=== PATIENT | female | born 1990 | race American Indian/Alaskan Native ===

== ENCOUNTER 2017-04-28 17:00 | Emergency (ER) | payer OTHER ==
[~2017-04-28] VITALS: Ht 177.8 cm; Wt 93.6 kg
[2017-04-28] MEDS ORDERED: ACETAMINOPHEN 325 MG TAB PO ONE (17:45)
[2017-04-28] MEDS ORDERED: IBUPROFEN 800 MG TAB PO ONE (17:45)
[2017-04-28] MEDS ORDERED: NS 1,000 ML IV ONE (17:45)
[2017-04-28 18:03] LABS: BASO # 0.1 10^3/uL (0.0-0.2); BASO % 0.9 % (0.0-1.0); EOS # 0.1 10^3/uL (0.0-0.50); EOS % 1.7 % (0.0-3.0); IMMATURE GRANULOCYTE % 0.3 % (0-0); LYMPH # 3.5 10^3/uL (1.5-6.5); LYMPH % 45.9 % (24.0-44.0); MEAN CORPUSCULAR HGB CONC 34.2 g/dl (32.0-36.5); MEAN CORPUSCULAR VOLUME 79.1 fl (80.0-96.0); MONO # 0.6 10^3/uL (0.0-0.8); MONO % 7.9 % (0.0-5.0); NEUTROPHILS # 3.3 10^3/uL (1.8-7.7); NEUTROPHILS % 43.3 % (36.0-66.0); PLATELET COUNT, AUTOMATED 257 10^3/uL (150-450); RED CELL DISTRIBUTION WIDTH 12.6 % (11.5-14.5); WHITE BLOOD COUNT 7.6 10^3/uL (4.0-10.0)
[2017-04-28 18:28] LABS: ANION GAP 4 MEQ/L (8-16); BLOOD UREA NITROGEN 12 MG/DL (7-18); CALCIUM LEVEL 9.1 MG/DL (8.5-10.1); CARBON DIOXIDE LEVEL 31 MEQ/L (21-32); CHLORIDE LEVEL 107 MEQ/L (98-107); CREATININE FOR GFR 0.68 MG/DL (0.55-1.02); GLOMERULAR FILTRATION RATE > 60.0 (>60); GLUCOSE, FASTING 84 MG/DL (70-105); POTASSIUM SERUM 3.8 MEQ/L (3.5-5.1); SODIUM LEVEL 142 MEQ/L (136-145)
[2017-04-28 18:59] LABS: ERYTHROCYTE SEDIMENTATION RATE 10 mm/hr (0-20)
--- NOTE | 2017-04-28 19:09 | REP ---
HISTORY: Temporal headache times three months. No priors. TECHNIQUE: 4.5 mm contiguous transaxial sections were obtained from the skull base to the cerebral convexities with thin cuts through the posterior fossa without the administration of intravenous contrast. FINDINGS: The ventricles and sulci are consistent with the patient's age. There are no extra-axial fluid collections. There is no mass effect. The deep cerebral white matter is consistent with the patient's age. The orbital and petrous structures , cerebellopontine angles, and posterior fossa are unremarkable. The sella turcica, cavernous, and paracavernous structures are essentially unremarkable. The visualized portions of the paranasal sinuses and mastoid air cells are clear. Images of the skull base show no gross abnormality. IMPRESSION: Essentially unremarkable CT examination of the brain. Signed by Sameer Salmeron DO 04/28/2017 07:30 P
--- NOTE | 2017-04-28 21:00 | REPUSA ---
MR Venogram of the brain. Clinical history: headache, dizziness. Technique: [id number] MRV images of the brain were obtained without administration of contrast. 3 -D MIP images were also obtained. Findings: The intracranial venous structures demonstrate normal caliber and contour. No intraluminal filling defect is identified. There is no evidence of aneurysm, stenosis, or thrombosis. Impression: Unremarkable MRV examination of the brain.
--- NOTE | 2017-04-28 21:10 | REPUSA ---
MRI of the brain. Clinical history: headache, dizziness. Technique: Multiecho multiplanar MRI images of the brain were obtained without administration of cont rast. Diffusion weighted images with ADC mapping was also obtained. Findings: The ventricles and sulci are symmetric bilaterally. The brain parenchyma demonstrates uniform and nor mal signal on all sequences. There is no midline shift, mass effect, or extra-axial fluid collection. The midline intracranial structures do not demonstrate any gross abnormalities. The cervical cranial junction is intact. The orbits are unremarkable. The visualized paranasal sinuses and mastoid air ce lls are clear. The osseous structures and superficial soft tissues are unremarkable. The vascular str uctures demonstrate appropriate flow voids. Impression: Normal MRI of the Brain.
[2017-04-28] MEDS ORDERED: IBUP80TA PO (21:34)
[2017-04-28 21:40] VITALS: BP 133/77
== END 2017-04-28 21:44 | disposition home or self-care (01) ==
LOC: M ED 17:00
DX: G43.909 Migraine, unspecified, not intractable, without status migrainosus (principal); Z87.891 Personal history of nicotine dependence

== ENCOUNTER 2018-01-12 19:25 | Emergency (ER) | payer SELFPAY, OTHER | END 2018-01-12 23:46 | disposition home or self-care (01) | LOC: M ED 19:25 | DX: N64.4 Mastodynia (principal) | CPT/HCPCS: 76604 ==

== ENCOUNTER 2019-07-23 21:26 | Emergency (ER) | payer OTHER, SELFPAY ==
[~2019-07-23] VITALS: Ht 177.8 cm; Wt 110.0 kg
[~2019-07-23 21:26] MED LIST: ACET-716 PO; APAP500T10 PO; IBUP80TA PO
[2019-07-23 22:22] LABS: BASO # 0.1 10^3/uL (0.0-0.2); BASO % 1.1 % (0.0-1.0); EOS # 0.1 10^3/uL (0.0-0.5); HEMATOCRIT 40.6 % (36.0-47.0); HEMOGLOBIN 13.3 g/dl (12.0-15.5); MEAN CORPUSCULAR HEMOGLOBIN 27.3 pg (27.0-33.0); MEAN CORPUSCULAR HGB CONC 32.8 g/dl (32.0-36.5); MEAN CORPUSCULAR VOLUME 83.2 fl (80.0-96.0); MONO # 0.6 10^3/uL (0.0-0.8); MONO % 7.5 % (0.0-5.0); NEUTROPHILS # 3.6 10^3/uL (1.5-8.5); NEUTROPHILS % 43.2 % (36.0-66.0); PLATELET COUNT, AUTOMATED 299 10^3/uL (150-450); RED BLOOD COUNT 4.88 10^6/uL (4.00-5.40); WHITE BLOOD COUNT 8.4 10^3/uL (4.0-10.0)
[2019-07-23 22:50] LABS: HEMOGLOBIN A1c 5.5 %
[2019-07-23 23:01] LABS: FREE T4 1.15 NG/DL (0.76-1.46); MAGNESIUM LEVEL 1.9 MG/DL (1.8-2.4); THYROID STIMULATING HORMONE 2.78 uIU/ML (0.358-3.740)
[2019-07-23 23:13] VITALS: BP 123/78
== END 2019-07-23 23:20 | disposition home or self-care (01) ==
LOC: M ED 21:26
DX: R53.83 Other fatigue (principal); R20.2 Paresthesia of skin; R63.1 Polydipsia; R35.8 Other polyuria; Z87.891 Personal history of nicotine dependence

== ENCOUNTER 2019-09-24 21:36 | Emergency (ER) | payer OTHER ==
[~2019-09-24] VITALS: Ht 177.8 cm; Wt 101.8 kg
[2019-09-24] MEDS ORDERED: KETOROLAC 30 MG/ML VIAL (J1885) IV ONE (22:00)
[2019-09-24] MEDS ORDERED: ALBUTEROL 90 MCG/ACT 8GM HFA INHALER INH ONE (22:00)
[2019-09-24] MEDS ORDERED: NS 1,000 ML IV ONE (22:00)
[2019-09-24 22:16] LABS: BASO # 0.1 10^3/uL (0.0-0.2); BASO % 1.5 % (0.0-1.0); EOS # 0.1 10^3/uL (0.0-0.5); EOS % 0.7 % (0.0-3.0); HEMATOCRIT 40.6 % (36.0-47.0); HEMOGLOBIN 13.7 g/dl (12.0-15.5); LYMPH # 3.3 10^3/uL (1.5-5.0); LYMPH % 44.5 % (24.0-44.0); MEAN CORPUSCULAR HEMOGLOBIN 27.7 pg (27.0-33.0); MEAN CORPUSCULAR HGB CONC 33.7 g/dl (32.0-36.5); MEAN CORPUSCULAR VOLUME 82.2 fl (80.0-96.0); MONO # 0.6 10^3/uL (0.0-0.8); MONO % 8.6 % (0.0-5.0); NEUTROPHILS # 3.3 10^3/uL (1.5-8.5); NEUTROPHILS % 44.6 % (36.0-66.0); PLATELET COUNT, AUTOMATED 266 10^3/uL (150-450); RED BLOOD COUNT 4.94 10^6/uL (4.00-5.40); WHITE BLOOD COUNT 7.4 10^3/uL (4.0-10.0)
[2019-09-24 22:48] LABS: ALBUMIN 4.1 GM/DL (3.2-5.2); ALT/SGPT 21 U/L (12-78); BILIRUBIN,DIRECT 0.2 MG/DL (0.0-0.2); BILIRUBIN,TOTAL 0.5 MG/DL (0.2-1.0); CK-MB VALUE MASS < 1.0 NG/ML (<3.6); CPK CREATINE PHOSPHOKINASE 121 U/L (26-192); MB/CK RELATIVE INDEX 0.83 (< OR =4); TOTAL PROTEIN 7.1 GM/DL (6.4-8.2); TROPONIN I < 0.02 NG/ML (< 0.10)
[2019-09-24] MEDS ORDERED: ISOVUE-370 76% 100ML VIAL (Q9967) As Ordered ONE (23:13)
[2019-09-24] MEDS ORDERED: ACETAMINOPHEN 325 MG TAB PO ONE (23:30)
--- NOTE | 2019-09-24 23:40 | REPVR ---
PROCEDURE INFORMATION: Exam: CT Angiography Chest With Contrast Exam date and time: 09/24/2019 10:53 PM Age: 28 years old Clinical indication: Shortness of breath; Additional info: Cp/sob TECHNIQUE: Imaging protocol: Computed tomographic angiography of the chest with intravenous contrast. 3D rendering: MIP and/or 3D reconstructed images were created by the technologist. Radiation optimization: All CT scans at this facility use at least one of these dose optimization techniques: automated exposure control; mA and/or kV adjustment per patient size (includes targeted exams where dose is matched to clinical indication); or iterative reconstruction. Contrast material: ISO; Contrast volume: 75 ml; Contrast route: AC; COMPARISON: CR PORTABLE CHEST X-RAY 09/24/2019 10:30 PM FINDINGS: Pulmonary arteries: The main pulmonary artery measures 25 mm. No pulmonary embolism is identified. Aorta: The ascending thoracic aorta measures 27 mm. Other arteries: The left vertebral artery originates directly from the arch. Lungs: Minimal lingular and right middle lobe fibro-atelectatic change. Pleural space: Unremarkable. No pneumothorax. No pleural effusion. Heart: Unremarkable. No cardiomegaly. No pericardial effusion. Mediastinum: There is soft tissue conforming to the anterior mediastinum consistent with residual thymic tissue. Lymph nodes: Unremarkable. No enlarged lymph nodes. Bones/joints: Bifid right rib anteriorly. Soft tissues: Unremarkable. IMPRESSION: Negative CTA chest. No pulmonary embolism is identified. Electronically signed by: Catracho Zazueta On 09/24/2019 23:40:29 PM
[2019-09-24] MEDS ORDERED: VENTAER INH (23:51)
[2019-09-24] MEDS ORDERED: AZIT-12 PO (23:51)
[2019-09-24 23:58] VITALS: BP 145/87
--- NOTE | 2019-09-25 08:40 | REP ---
Clinical: Shortness of breath . Comparison: None . Findings: The mediastinum and cardiac silhouette are stable and within normal limits for portable technique. The lung wade are clear without acute consolidation, effusion, or pneumothorax. Skeletal structures are intact. Impression: No acute cardiopulmonary process appreciated. Electronically Signed by Jose Roberto Mancuso MD 09/25/2019 08:32 A
--- NOTE | 2019-09-26 06:37 | ECGEPIP ---
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
== END 2019-09-25 | disposition home or self-care (01) ==
LOC: M ED 21:36
DX: J20.9 Acute bronchitis, unspecified (principal)
CPT/HCPCS: 71045; 71275; 80047; 80076; 82550; 82553; 84702; 85025; 85379; 93005; 94640; 94664; 96360; 96361; 99284; Q9967

== ENCOUNTER 2019-11-22 22:17 | Emergency (ER) | payer OTHER ==
[~2019-11-22] VITALS: Ht 177.8 cm; Wt 94.7 kg
[2019-11-22 22:17] VITALS: BP 132/81
[~2019-11-22 22:17] MED LIST changes: +AZIT-12 PO; +VENTAER INH
[2019-11-22 23:00] LABS: BASO # 0.1 10^3/uL (0.0-0.2); BASO % 1.3 % (0.0-1.0); EOS % 0.5 % (0.0-3.0); HEMATOCRIT 39.8 % (36.0-47.0); HEMOGLOBIN 13.2 g/dl (12.0-15.5); LYMPH # 3.1 10^3/uL (1.5-5.0); LYMPH % 39.7 % (24.0-44.0); MEAN CORPUSCULAR HEMOGLOBIN 27.4 pg (27.0-33.0); MEAN CORPUSCULAR HGB CONC 33.2 g/dl (32.0-36.5); MEAN CORPUSCULAR VOLUME 82.7 fl (80.0-96.0); MONO # 0.7 10^3/uL (0.0-0.8); MONO % 8.7 % (0.0-5.0); NEUTROPHILS # 3.8 10^3/uL (1.5-8.5); NEUTROPHILS % 49.5 % (36.0-66.0); PLATELET COUNT, AUTOMATED 233 10^3/uL (150-450); RED BLOOD COUNT 4.81 10^6/uL (4.00-5.40); WHITE BLOOD COUNT 7.7 10^3/uL (4.0-10.0)
[2019-11-22 23:26] LABS: BLOOD UREA NITROGEN 7 MG/DL (7-18); CALCIUM LEVEL 8.7 MG/DL (8.5-10.1); CARBON DIOXIDE LEVEL 27 MEQ/L (21-32); CHLORIDE LEVEL 110 MEQ/L (98-107); CK-MB VALUE MASS < 1.0 NG/ML (<3.6); CPK CREATINE PHOSPHOKINASE 93 U/L (26-192); CREATININE FOR GFR 0.69 MG/DL (0.55-1.30); GLOMERULAR FILTRATION RATE > 60.0 (>60); GLUCOSE, FASTING 92 MG/DL (70-100); MB/CK RELATIVE INDEX 1.08 (< OR =4); POTASSIUM SERUM 4.1 MEQ/L (3.5-5.1); SODIUM LEVEL 141 MEQ/L (136-145); TROPONIN I < 0.02 NG/ML (< 0.10)
[2019-11-22] MEDS ORDERED: KETOROLAC 60 MG/2 ML VIAL IM ONE (23:45)
--- NOTE | 2019-11-23 00:31 | REP ---
Clinical: Chest pain . Comparison: 09/24/2019 . Technique: PA and lateral. Findings: The mediastinum and cardiac silhouette are normal. The lung wade are clear and without acute consolidation, effusion, or pneumothorax. The skeletal structures are intact and normal. Impression: 1. No acute cardiopulmonary process. Electronically Signed by Jose Roberto Mancuso MD 11/23/2019 12:21 A
--- NOTE | 2019-11-23 07:16 | ECGEPIP ---
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
== END 2019-11-23 00:06 | disposition home or self-care (01) ==
LOC: M ED 22:17
DX: R07.89 Other chest pain (principal); Z87.891 Personal history of nicotine dependence; Z98.891 History of uterine scar from previous surgery
CPT/HCPCS: 36415; 71046; 80048; 82550; 82553; 84702; 85025; 93005; 96372; 99284; J1885

== ENCOUNTER → 2020-03-07 | Outpatient (REF) | payer OTHER ==
[2020-03-10 19:13] LABS: D001-IgE D pteronyssinus <0.10 kU/L (Class 0); E001-IgE Cat Epith/Dander < 0.10 kU/L (Class 0); E005-IgE Dog Dander < 0.10 kU/L (Class 0); G002-IgE Bermuda Grass < 0.10 kU/L (Class 0); G008-IgE Kentucky Bluegrass < 0.10 kU/L (Class 0); M001-IgE Penicillium chrysogen < 0.10 kU/L (Class 0); M002 IgE Cladosporium herbaru < 0.10 kU/L (Class 0); M003 IgE Aspergillus fumigatu < 0.10 kU/L (Class 0); M006-IgE Alternaria alternata < 0.10 kU/L (Class 0); T001-IgE Maple/Box Elder < 0.10 kU/L (Class 0); T003-IgE Common Silver Birch < 0.10 kU/L (Class 0); T006-IgE Cedar, Mountain < 0.10 kU/L (Class 0); T007-IgE Oak, White < 0.10 kU/L (Class 0); T008-IgE Elm, American < 0.10 kU/L (Class 0); T015-IgE Ash, White < 0.10 kU/L (Class 0); T041-IgE Hickory, White < 0.10 kU/L (Class 0); T070-IgE White Mulberry < 0.10 kU/L (Class 0); W001-IgE Ragweed, Short < 0.10 kU/L (Class 0); W009-IgE Plantain, English < 0.10 kU/L (Class 0); W014-IgE Pigweed, Rough < 0.10 kU/L (Class 0); W018-IgE Sheep Sorrel < 0.10 kU/L (Class 0)
== END ==
LOC: M LAB REF 14:02
PROVIDERS: ATTEND Internal Medicine Pulmonary Disease
DX: J45.40 Moderate persistent asthma, uncomplicated (principal)

== ENCOUNTER 2021-08-11 19:33 | Emergency (ER) | payer OTHER ==
[~2021-08-11] VITALS: Ht 177.8 cm; Wt 81.8 kg
[2021-08-11] MEDS ORDERED: NS 1,000 ML IV ONE (21:10)
[2021-08-11] MEDS ORDERED: METOCLOPRAMIDE INJ 10MG/2ML VIAL (J2765 PER 1) IV ONE (21:10)
[2021-08-11 21:42] LABS: BASO # 0.1 10^3/uL (0.0-0.2); BASO % 1.6 % (0.0-1.0); EOS % 0.4 % (0.0-3.0); HEMATOCRIT 36.3 % (36.0-47.0); HEMOGLOBIN 11.8 g/dl (12.0-15.5); LYMPH # 2.5 10^3/uL (1.5-5.0); LYMPH % 36.3 % (24.0-44.0); MEAN CORPUSCULAR HEMOGLOBIN 25.7 pg (27.0-33.0); MEAN CORPUSCULAR HGB CONC 32.5 g/dl (32.0-36.5); MEAN CORPUSCULAR VOLUME 78.9 fl (80.0-96.0); MONO # 0.5 10^3/uL (0.0-0.8); MONO % 7.2 % (2.0-8.0); NEUTROPHILS # 3.7 10^3/uL (1.5-8.5); NEUTROPHILS % 54.4 % (36.0-66.0); PLATELET COUNT, AUTOMATED 281 10^3/uL (150-450); WHITE BLOOD COUNT 6.8 10^3/uL (4.0-10.0)
[2021-08-11 21:58] LABS: BLOOD UREA NITROGEN 7 MG/DL (7-18); CALCIUM LEVEL 8.9 MG/DL (8.5-10.1); CARBON DIOXIDE LEVEL 30 MEQ/L (21-32); CHLORIDE LEVEL 108 MEQ/L (98-107); CREATININE FOR GFR 0.69 MG/DL (0.55-1.30); GLOMERULAR FILTRATION RATE > 60.0 (>60); GLUCOSE, FASTING 107 MG/DL (70-100); SODIUM LEVEL 143 MEQ/L (136-145)
[2021-08-11 22:01] LABS: ERYTHROCYTE SEDIMENTATION RATE 13 mm/hr (0-20)
[2021-08-11 23:10] VITALS: BP 123/62
== END 2021-08-11 23:17 | disposition home or self-care (01) ==
LOC: M ED 19:33
DX: G43.909 Migraine, unspecified, not intractable, without status migrainosus (principal); M79.669 Pain in unspecified lower leg; Z87.891 Personal history of nicotine dependence
CPT/HCPCS: 70450; 80048; 84702; 85025; 85652; 93005; 93971; 96361; 96374; 99284; J2765